=== PATIENT | male | born 1950 | race Hispanic/Latino ===

== ENCOUNTER → 2019-06-30 | Day surgery (SDC) | payer MEDICARE ==
[2019-06-26 11:07] LABS: BASOPHILS % 0.4 % (0.0-1.0); EOSINOPHILS # (AUTO) 0.1 (0.0-0.4); EOSINOPHILS % 0.9 % (0.0-6.0); HEMATOCRIT 36.9 % (38.2-49.6); HEMOGLOBIN 12.9 g/dL (14.0-18.0); LYMPHOCYTES # (AUTO) 1.5 (1.0-3.2); LYMPHOCYTES % 18.7 % (18.0-39.1); MEAN CORPUSCULAR HEMOGLOBIN 32.7 pg (28-32); MEAN CORPUSCULAR VOLUME 93.4 fL (81-99); MONOCYTES # (AUTO) 0.5 (0.2-0.8); MONOCYTES % 6.2 % (4.4-11.3); NEUTROPHILS # (AUTO) 5.8 (2.1-6.9); NEUTROPHILS % 73.5 % (38.7-80.0); PLATELET COUNT 117 x10e3/uL (140-360); RED BLOOD COUNT 3.95 x10e6/uL (4.3-5.7); RED CELL DISTRIBUTION WIDTH 11.5 % (11.7-14.4)
[2019-06-26 11:26] LABS: ALBUMIN 3.6 g/dL (3.5-5.0); ALBUMIN/GLOBULIN RATIO 0.9 (0.8-2.0); ANION GAP 10.3 mmol/L (8-16); CALCIUM 9.6 mg/dL (8.4-10.2); CREATININE, SERUM 1.37 mg/dL (0.72-1.25); POTASSIUM 4.3 mmol/L (3.5-5.1)
--- NOTE | 2019-06-26 11:39 | Diagnostic Imaging Report ---
Chest, 1 view, 06/26/2019. History: Preop, gallbladder surgery. Comparison: 03/29/2013. Findings: The cardiomediastinal silhouette and pulmonary vasculature are within normal limits for a portable exam. There is elevation of the left hemidiaphragm. Linear opacities are present at the left lung base. There is no focal consolidation or pleural effusion. There are no acute osseous or soft tissue abnormalities. Impression: Left diaphragmatic elevation with left lower lobe atelectasis. Signed by: Mario Alberto Onofre on 06/26/2019 11:36 AM
[~2019-06-30] MED LIST: ACETAMINOPHEN 1000 MG/100 ML IV ONE; ACTOS45 MG PO; AMLODIPINE BESYL5 MG PO; ASPIR 8181 MG PO; ATORVASTATIN CA40 MG PO; AVODART0.5 MG PO; BUPIVACAINE 0.25%/EPI 30ML SDV INJ ONE; CATAPRES-TTS 31 EA TD; CENTRUM ADULTS1 EACH PO; CLONIDINE HCL0.1 M1 PO; DEXAMETHASONE SOD PHOS INJ 4 MG/ML VIAL ONE; FENTANYL CITRATE/PF 100MCG/2 ML INJ ONE; FEOSOL325 MG PO; GLIPIZIDE10 MG PO; GLUCOSAMINE1000 MG PO; GLYBURIDE5 MG PO; GLYCOPYRROLATE INJ 1MG/ 5 ML SYR ONE; HYDROCHLOROTHIA25 MG PO; HYDROMORPHONE 1MG/1ML INJ ONE; LANTUS100 UNITS/ SQ; LIDOCAINE HCL 2% LOCAL INJ 5 ML SDV VIAL INJ ONE; LISINOPRIL10 MG PO; LISINOPRIL40 MG PO; LOVASTATIN20 MG PO; METFORMIN HCL850 MG PO; METOPROLOL SUC100 MG PO; NAPROXEN500 MG PO; NEOSTIGMINE 5 MG/5ML SYR ONE; ONDANSETRON HCL INJ 2MG/ML 2ML 2 MG/ML VIAL ONE; PROPOFOL IV EMULSION 10 MG/ML 20 ML VIAL ONE; ROCURONIUM BROMIDE 10 MG/ML 5ML VIAL ONE; SEVOFLURANE INHAL SOLN 250 ML PEN BTL ONE; TRESIBA100 UNIT/1 SC; ULTRACET TABLE1 EACH PO; VIAGRA100 MG PO
--- OUTSIDE RECORDS SUMMARY | 2019-06-30 05:26 | XMS REPORT ---
[facility] Address Unknown Phone Unavailable Care Team Providers Care [employer] Worker Name Role Phone CATHRYN GRANADOS Unavailable Unavailable Problems This patient has no known problems. Allergies, Adverse Reactions, Alerts This patient has no known allergies or adverse reactions. Medications This patient has no known medications. Results Test Description Test Time Test Comments Text Results Atomic Results Result Comments CHEST 2 VIEWS 2019-06-26 11:35:00 [place] [id number] Patient Name: PATRICK WILLETT MR #: [id number] : 1950 Age/Sex: 68/M Req #: [id number] [facility] Physician: Ordered by: CATHRYN GRANADOS MD Report #: [id number] Location: OR Room/Bed: Procedure: [id number] DX/CHEST 2 VIEWS Exam Date: 06/26/19 Exam Time: 1100 REPORT STATUS: Signed Chest, 1 view, 06/26/2019. History: Preop, g allbladder surgery. Comparison: 03/29/2013. Findings: The cardiomediastinal silhouette and pulmonary vasculature are within normal limits for a portable exam. There is elevation of the left hemidiaphragm. Linear opacities are present at the left lung base. There is no focal consolidation or pleural effusion. There are no acute osseous or soft tissue abnormalities. Impression: Left diaphragmatic elevation with left lower lobe atelectasis. Signed by: Rupinder Onofre on 06/26/2019 11:36 AM Dictated By: RUPINDER ONOFRE MD [id number] Transcribed By: SILVIA on 06/26/19 1136 COPY TO: CATHRYN GRANADOS MD
[2019-06-30 10:22] VITALS: BP 146/72
--- NOTE | 2019-06-30 15:28 | Operative Report ---
DATE OF PROCEDURE: 06/30/2019 SURGEON: Wili Whitley MD PREOPERATIVE DIAGNOSES: Cholelithiasis, chronic cholecystitis. POSTOPERATIVE DIAGNOSIS: Cholelithiasis, chronic cholecystitis. PROCEDURE PERFORMED: Laparoscopic cholecystectomy. ANESTHESIA: General. ESTIMATED BLOOD LOSS: Minimal. DRAINS: None. COMPLICATIONS: None. INDICATION AND FINDINGS: A 68-year-old male admitted for laparoscopic cholecystectomy. He has a longstanding history of upper abdominal pain, discomfort, and dyspepsia. He had an ultrasound that revealed gallstones and no ductal dilatation. Liver chemistries were normal. INTRAOPERATIVE FINDINGS: Gallbladder that was emptied containing 2 medium-sized stones in the neck of the gallbladder. There was no ductal dilatation. DESCRIPTION OF PROCEDURE: With the patient lying on the operative table in the supine position after administration of general anesthesia, he was prepped and draped for laparoscopic cholecystectomy. The procedure was begun by establishing the pneumoperitoneum in the umbilical site after stab wound was made in that location and the saline drop test was performed and pneumoperitoneum was insufflated to 15 mm of pressure and then the 10/11 trocar placed in that location. The patient was rotated to the left and with the head up and a 10 mm subxiphoid port was placed. After we did that, we placed 2 lateral working ports 5 mm each in the right midclavicular line and right anterior axillary line. The gallbladder was retracted cephalad using grasping forceps through two 5 mm trocar and the dissection was then continued. Adhesions of the gallbladder to the omentum were lysed, and then we exposed the hepatoduodenal ligament and identified the cystic duct. We traced it down to the common bile duct, which was seen at its junction with the cystic duct 360 degrees circumferentially. We identified anterior and posterior branches of the cystic artery. At that point, after having identified the part of the liver, gallbladder fossa, then we transected the cystic duct and the cystic arteries between titanium clips. Then, we proceeded to mobilize the gallbladder and took it down from the liver bed using electrocautery dissection, traction and counter traction. Bleeding points were cauterized as they were encountered. The gallbladder was detached and then removed through the umbilical port. We inspected the operative field. There was no bile leak, no bleeding, no apparent bowel injury. At that point, we released the pneumoperitoneum and closed the wound using 0-Vicryl for the umbilical fascia, 3-0 Vicryl for the subcutaneous tissue in that location as well as the subxiphoid port and the skin of all the ports were closed with demetrice. A 0.25% Marcaine with epinephrine was given as local block at the end of the case. The patient tolerated the procedure well, was taken to recovery room in stable condition. MD CLAUDIA Regalado/KEITH /[id number]
== END | disposition home or self-care (01) ==
LOC: OR 05:14
PROVIDERS: ATTEND Surgery
DX: K80.10 Calculus of gallbladder with chronic cholecystitis without obstruction (principal); K82.8 Other specified diseases of gallbladder; Z01.810 Encounter for preprocedural cardiovascular examination; Z01.812 Encounter for preprocedural laboratory examination; E11.9 Type 2 diabetes mellitus without complications; I10 Essential (primary) hypertension; E78.5 Hyperlipidemia, unspecified; Z79.84 Long term (current) use of oral hypoglycemic drugs
CPT/HCPCS: 36415 ×2; 47562; 71046; 80053; 82948; 85025; 88304; 93005; C1766; J0131; J1100; J1170; J2001; J2405; J2704; J3010; J3490